=== PATIENT | male | born 1945 | race Caucasian/White ===

== ENCOUNTER → 2016-07-11 | Outpatient (CLI) | payer MEDICARE ==
--- NOTE | 2016-07-11 14:15 | CT ---
EXAM DESCRIPTION: CT LUMBAR SPINE WITHOUT IV CONTRAST CLINICAL HISTORY: 71 y/o M, LUMBAR RADIOCULOPATHY COMPARISON: None TECHNIQUE: Volumetric non contrasted CT of the lumbar spine was performed. Raw data was manipulated into axial, coronal and sagittal images. FINDINGS: Vertebral body height and alignment is unremarkable. Disk vacuum phenomenon at L4-5 and L5-S1. Anterior osteophytes noted at all levels most pronounced from the lower thoracic spine through L3. L1-L2: No spinal canal or neural foraminal narrowing. L2-3: Facet degeneration. No spinal canal or neural foraminal narrowing. L3-4: There is a 3 mm circumferential disc bulge. Facet degeneration noted. The midline diameter of the spinal canal is unremarkable measuring 12 mm in diameter. There is mild bilateral neural foraminal narrowing. L4-5: Circumferential disk osteophyte complex. The midline diameter of the spinal canal is widely patent measuring 1.3 cm. Mild bilateral neural foraminal narrowing is noted. L5-S1: Mild circumferential disk osteophyte complex. The midline diameter of the spinal canal is widely patent measuring 1.4 cm in diameter. There is moderate bilateral neural foraminal narrowing. There is likely contact of the bilateral exiting L5 nerve roots. IMPRESSION: Today's exam demonstrates multilevel degenerative change, but no spinal canal narrowing at any level. There is neural foraminal narrowing noted bilaterally from L3-4 through L5-S1 with likely contact the bilateral exiting L5 nerve roots. These findings could result in bilateral L5 radiculopathies if the patient is symptomatic. Electronically signed by: Bright Still MD 07/11/2016 14:14
== END | disposition home or self-care (01) ==
LOC: CT 09:18
PROVIDERS: ATTEND Family Medicine
DX: M54.16 Radiculopathy, lumbar region (principal)

== ENCOUNTER → 2017-03-30 | Outpatient (CLI) | payer MEDICARE | END | disposition home or self-care (01) | LOC: GMAL 11:17 | PROVIDERS: ATTEND Family Medicine | DX: D51.3 Other dietary vitamin B12 deficiency anemia (principal); Z12.5 Encounter for screening for malignant neoplasm of prostate; E55.9 Vitamin D deficiency, unspecified | CPT/HCPCS: 82306; 82607; G0103 ==

== ENCOUNTER 2017-04-06 05:41 | Day surgery (SDC) | payer MEDICARE ==
--- NOTE | 2017-04-05 14:18 | SSS ---
CHIEF COMPLAINT: History of colon polyps. HISTORY OF PRESENT ILLNESS: Mr. Kramer is a 72 year-old male who presents to my office for routine followup. It was noted that he was due for a repeat colonoscopy. The risks and benefits were discussed. He is agreeable with proceeding. He denies any symptoms referable to his bowels, specifically no abdominal pain, changes in his bowel habits, constipation or blood in the stool. PAST MEDICAL HISTORY: 1. Hyperlipidemia. 2. Hypertension. Nuclear stress was a technically difficult study and only got his heart rate up to 99, but was otherwise a negative test on 03/29/15. He had a cardiac catheterization that showed minimal coronary artery disease in [place] in 2010. 3. History of colon polyps diagnosed in 2007. 4. Urinary frequency. 5. Uxl-[id number] diabetes mellitus diagnosed in 2002. 6. He received Zostavax and Leviland in 2012. 7. Benign prostatic hypertrophy 8. Gastroesophageal reflux disease. PAST SURGICAL HISTORY: 1. Tonsillectomy as a child. 2. Right open knee surgery for cartilage repair in 1978. 3. Hydrocele surgery in 2005. 4. Right hip fracture repair by Dr. Johan Howard in March 2014. 5. Right knee arthroscopy for medial meniscus debridement and lateral meniscectomy by Dr. Howard on 12/08/14. 6. 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 Childress on 09/11/15. 7. Green light laser transurethral prostate ablation for benign prostatic hypertrophy by Dr. Zhao on 01/15/15. 8. Bladder interstem placement by Dr. Zhao on 06/04/15. 9. Colonoscopy in 2007. 10. Colonoscopy by Dr. Moran with 2 tubular adenomas being removed on 05/13/13. CURRENT MEDICATIONS: 1. Invokana. 2. Lisinopril. 3. Atorvastatin. 4. Victoza. 5. Flomax. 6. Prilosec. 7. Vitamin D. 8. VESIcare. 9. Aspirin. 10. Many vitamins. ALLERGIES: METFORMIN GIVES HIM CHEST PAIN WHEN HE GETS OVER 1500 MG. PENICILLIN WHICH CAUSES A RASH. DAYPRO WHICH CAUSES SWELLING. GLIMEPIRIDE WHICH MADE HIS SHORT OF BREATH. GLYBURIDE WHICH "GAVE ME COLD CHILLS" FOR 3 WEEKS WHEN HE TOOK IT IN 2013. FAMILY HISTORY: Father has type 2 diabetes. Mother a 83 from a heart attack. He has 1 brother, Donis, with type 2 diabetes and hypertension. He has 1 sister who is a half sister named Sabrina in good health. He has a son, Samuel who has a history of leukemia and squamous cell carcinoma of the lip. He had a pleomorphic dermal sarcoma behind his left ear and his ear was removed in 2017. He has 1 daughter who is healthy named Roseline Simmons. SOCIAL HISTORY: He was born in [place], [place]. 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 He is . He has 2 children. He is a college graduate. He drinks alcohol on a regular basis. He usually drinks a mixed drink of whiskey once a day. He uses smokeless tobacco. REVIEW OF SYSTEMS: Negative except as per History of Present Illness. PHYSICAL EXAMINATION: VITAL SIGNS: Blood pressure 120/62, pulse 80, weight 258, height 5' 10". GENERAL: He is awake and alert in no acute distress. HEENT: Unremarkable. NECK: Supple. CHEST: Lungs are clear. CARDIOVASCULAR: Regular rate and rhythm. ABDOMEN: Obese but benign. EXTREMITIES: Without edema. NEUROLOGIC: No focal. RECTAL: Exam is deferred until time of colonoscopy. ASSESSMENT: 1. History of colon polyps. PLAN: Colonoscopy on 04/06/17. #[id number] [facility]
[2017-04-06] MEDS ORDERED: LACTATED RINGERS 1,000 ML ONE (06:52)
[2017-04-06 07:47] VITALS: O2SAT 95
[2017-04-06 09:19] VITALS: BP 104/64; TEMP 98.3
--- NOTE | 2017-04-06 09:39 | OP ---
DATE OF PROCEDURE: 04/06/17 PREOPERATIVE DIAGNOSIS: 1. History of colonic polyps. POSTOPERATIVE DIAGNOSIS: 1. Few sigmoid diverticula. 2. 0.5 by 0.5 cm sigmoid colon polyp, snared, but unable to be retrieved. 2. 0.5 by 0.5 cm descending colon polyp, snared, but also not retrieved. PROCEDURE: 1. Colonoscopy. SURGEON: Malick Moran MD. ESTIMATED BLOOD LOSS: Less than 2 mL. COMPLICATIONS: No immediate complications. ANESTHESIA: Propofol 570 mg administered intravenously using monitored anesthesia care with Gavin Jay CRNA. TECHNIQUE: After informed consent was obtained from the patient, the patient was taken to the Endoscopy Suite and placed in the left lateral decubitus position. Incremental doses of propofol were given until adequate conscious was obtained. Digital rectal exam was then performed which showed a mildly enlarged prostate without suspicious nodules. Vital signs were monitored throughout the procedure. Supplemental oxygen was administered throughout the procedure. After rectal examination was performed, the colonoscope was then advanced into the patient's rectum and up through the sigmoid, descending, transverse and ascending colon to the level of the cecum. Only a brief period of abdominal pressure was required to reach the cecum. The usual cecal landmarks were identified. The terminal ileum was entered and photographed. There was quite a bit of solid debris in the cecal region. Effort was made to try to irrigate and suction out as much of this as possible, but some of the solid debris was too large to go up the scope suction port. The colonoscope was then slowly withdrawn, taking great care to try to visualize all mcdonnell of the colon in 360 degree fashion. Nevertheless, there were some areas of liquid stool, especially in the descending and sigmoid region where 2 polyps were noted and both removed by snare, but unable to be retrieved because of loss in liquidy stool. There were a few left sided diverticula, primarily in the sigmoid region. They were small in number and in size. In the rectum, the colonoscope was retroflexed upon itself. No polyps were noted on retroflexion. There were some grade 1 internal hemorrhoids. The colonoscope was then unretroflexed and air was suctioned out of the patient's rectum. he was waking up at the end of the procedure and tolerated the procedure well. PLAN: We will repeat his colonoscopy in [address] #[id number] [facility]
[2017-04-06] MEDS ORDERED: PROPOFOL 200 MG/20 ML VIAL IV ONE (11:00)
== END 2017-04-06 09:05 | disposition home or self-care (01) ==
LOC: AMB 05:41
PROVIDERS: ATTEND Family Medicine
DX: Z12.11 Encounter for screening for malignant neoplasm of colon (principal); D12.4 Benign neoplasm of descending colon; D12.5 Benign neoplasm of sigmoid colon; K57.30 Diverticulosis of large intestine without perforation or abscess without bleeding; E11.9 Type 2 diabetes mellitus without complications; K21.9 Gastro-esophageal reflux disease without esophagitis; E78.5 Hyperlipidemia, unspecified; I10 Essential (primary) hypertension; N40.0 Benign prostatic hyperplasia without lower urinary tract symptoms; E66.9 Obesity, unspecified; Z86.010 Personal history of colon polyps; Z87.891 Personal history of nicotine dependence; Z88.0 Allergy status to penicillin; Z88.8 Allergy status to other drugs, medicaments and biological substances; Z96.641 Presence of right artificial hip joint; Z79.82 Long term (current) use of aspirin; Z79.899 Other long term (current) drug therapy
CPT/HCPCS: 00810; 36416; 45385; 82948; J3490; J7120

== ENCOUNTER → 2017-07-21 | Outpatient (CLI) | payer MEDICARE ==
--- NOTE | 2017-07-21 09:38 | US ---
EXAM DESCRIPTION: Abdomen,Complete: Ultrasound. CLINICAL HISTORY: GENERALIZED ABDOMINAL PAIN COMPARISON: Ultrasound abdomen complete 02/27/2014. TECHNIQUE: Transabdominal scannin-dimensional and Doppler modes.. Technically difficult study due to patient large body habitus. FINDINGS: Gallbladder: No wall thickening 2.6 mm. No surrounding fluid. No intraluminal stones or sludge. Gallbladder is small. Nontender with transducer pressure. Common bile duct: 6.1 mL which is upper normal limits Liver: Mildly echogenic. Long axis of the right lobe is 18.4 cm. No intrahepatic biliary dilatation. Hepatopedal flow in the portal vein which is normal caliber. Smooth capsule. Pancreas: Not well visualized. Abdominal aorta: Normal caliber from the proximal segment to the mid segment. Distal segment at the bifurcation 2.6 cm. IVC: visualized; normal caliber. Spleen normal echogenicity; long axis measurement is 12 cm. Right kidney: Long axis is 13.6 cm. Mid renal cortical thickness 15 mm with normal echogenicity. No hydronephrosis. Left kidney: Long axis is 13.1 cm. Mid renal cortical thickness 15 mm with normal echogenicity. No hydronephrosis. IMPRESSION: 1. Technically difficult study due to patient large body habitus. 2. Gallbladder normal with no wall thickening or surrounding fluid. Nontender during scanning. 3. Minimal hepatic enlargement with steatosis. Normal ducts. Smooth border with no ascites. Normal vascularity. 4. Normal ultrasound of the bilateral kidneys spleen and normal caliber of the IVC. Pancreas was not well visualized due to bowel gas and large body habitus. 5. Proximal and mid abdominal aorta normal size. Dilation of the distal abdominal aorta 2.6 cm. Based on [facility] recommendations utilizing Society for vascular surgery guidelines, follow-up imaging of the abdominal aorta recommended in 5 year interval. Please see below.*. *AAA Size: Follow-up Recommendation (1): 2.6 - 2.9 cm Every 5 years (2) 3.0 - 3.4 cm Every 3 years 3.5 - 3.9 cm Every 12 months 4.0 - 4.4 cm Every 12 months, vasc consult rec 4.5 - 5.4 cm Every 6 months, vasc consult rec >=5.5 cm Referral to vascular surgeon recommended (1)Based upon the Society for Vascular Surgery Guidelines: J Vasc Surg. 2009 Oct;50(4 Suppl):S2-49 (2)For aortas of max marium of 2.6-2.9 cm that meet criteria for AAA (>= 1.5 x proximal normal segment) Electronically signed by: Kevon Correia MD 07/21/2017 9:37 AM [facility]
--- NOTE | 2017-07-21 15:55 | CT ---
EXAM DESCRIPTION: Abdomen/Pelvis w/Contrast CLINICAL HISTORY: 72 years Male, GEN ABD PAIN COMPARISON: Abdominal sonography dated June TECHNIQUE: Transaxial images were obtained with intravenous contrast medium without oral contrast media. Sagittal and coronal reconstruction was performed.This exam was performed according to our departmental dose-optimization program, which includes automated exposure control, adjustment of the mA and/or kV according to patient size and/or use of iterative reconstruction technique. FINDINGS: Minimal atelectasis or scarring is observed in the left lower lobe. There is some deformity of left posterior ribs from prior fracturing. The liver and spleen are unremarkable. No biliary ductal dilatation is observed. The gallbladder is normal in appearance. The exam does reveal what appears to be an 8.4 mm diameter calculus in the distal common bile duct in the region of the pancreatic head. The pancreas is normal in appearance. No adrenal masses are detected. Imaging of the kidneys reveals no evidence of hydronephrosis mass cyst or calcification. Calcific atherosclerotic changes observed in the abdominal aorta without evidence of aneurysmal dilatation. A transsacral stimulator generator and leads are seen in place on the patient's right. No inguinal region abnormality is seen. No free fluid is observed. The appendix is identified and is normal in appearance. Minimal diverticulosis of the sigmoid colon is observed. No evidence of diverticulitis is seen. Degenerative changes are observed in the lower lumbar spine. IMPRESSION: 1. Exam reveals what appears to be a calculus in the distal common bile duct measuring 8.4 mm in diameter. Further evaluation with MRCP or ERCP should be considered. 2. Uncomplicated diverticulosis. 3. A transsacral stimulator and lead are observed. Electronically signed by: Malick Murray MD 07/21/2017 3:54 PM [facility]
== END ==
LOC: US 08:25
PROVIDERS: ATTEND Family Medicine
DX: R10.84 Generalized abdominal pain (principal); K76.0 Fatty (change of) liver, not elsewhere classified; K57.30 Diverticulosis of large intestine without perforation or abscess without bleeding

== ENCOUNTER → 2018-05-28 | Outpatient (CLI) | payer MEDICARE | LOC: GMAL 10:37 | PROVIDERS: ATTEND Family Medicine | DX: Z12.5 Encounter for screening for malignant neoplasm of prostate (principal) ==

== ENCOUNTER → 2018-09-24 | Outpatient (CLI) | payer MEDICARE | LOC: GMAL 11:30 | PROVIDERS: ATTEND Family Medicine | DX: D51.3 Other dietary vitamin B12 deficiency anemia (principal); I10 Essential (primary) hypertension; E11.9 Type 2 diabetes mellitus without complications; E78.49 Other hyperlipidemia; R53.83 Other fatigue; E55.9 Vitamin D deficiency, unspecified ==

== ENCOUNTER → 2019-06-13 | Outpatient (CLI) | payer OTHER | LOC: GMAL 10:36 | PROVIDERS: ATTEND Family Medicine | DX: Z12.5 Encounter for screening for malignant neoplasm of prostate (principal); I10 Essential (primary) hypertension; E11.9 Type 2 diabetes mellitus without complications; R94.5 Abnormal results of liver function studies; E78.2 Mixed hyperlipidemia ==

== ENCOUNTER → 2019-10-13 | Outpatient (CLI) | payer OTHER | LOC: GMAL 11:48 | PROVIDERS: ATTEND Family Medicine | DX: D51.3 Other dietary vitamin B12 deficiency anemia (principal); R53.83 Other fatigue; E55.9 Vitamin D deficiency, unspecified; I10 Essential (primary) hypertension; E11.9 Type 2 diabetes mellitus without complications; E78.49 Other hyperlipidemia ==

== ENCOUNTER → 2020-06-29 | Outpatient (CLI) | payer OTHER | LOC: GMAL 13:35 | PROVIDERS: ATTEND Family Medicine | DX: D51.3 Other dietary vitamin B12 deficiency anemia (principal); E55.9 Vitamin D deficiency, unspecified; Z12.5 Encounter for screening for malignant neoplasm of prostate; R53.83 Other fatigue; I11.9 Hypertensive heart disease without heart failure; E29.1 Testicular hypofunction | CPT/HCPCS: 82306; 82607; 84402; 84403; 84439; 84443; G0103 ==